=== PATIENT | female | born 1970 | race African-American/Black ===

== ENCOUNTER 2021-01-06 19:01 | Emergency (ER) | payer BC, MEDICAID, SELFPAY ==
[~2021-01-06] VITALS: Ht 157.5 cm; Wt 64.8 kg
--- NOTE | 2021-01-06 19:18 | NUR ---
NIL by RAD x1
[2021-01-06 20:29] LABS: BASOPHILS % (AUTO) 1 % (0-1); EOSINOPHILS % (AUTO) 1 % (1-7); LYMPHOCYTES % (AUTO) 29 % (22-44); MEAN CORPUSCULAR HEMOGLOBIN 27.4 pg (27.0-34.8); MEAN CORPUSCULAR HGB CONC 33.4 g/dL (32.4-35.8); MEAN PLATELET VOLUME 8.5 fL (7.4-10.4); MONOCYTES % (AUTO) 5 % (2-9); NEUTROPHILS % (AUTO) 65 % (42-75); PLATELET COUNT 245 x10^3/uL (130-400); RED BLOOD COUNT 4.65 x10^6/uL (3.82-5.3); RED CELL DISTRIBUTION WIDTH 15.2 % (9.6-15.2)
--- NOTE | 2021-01-06 20:37 | NUR ---
exerciser horse: patient to room from lobby.
[2021-01-06 20:39] LABS: ALBUMIN 3.9 g/dL (3.4-5.0); ANION GAP 4 mmol/L (5-15); CALCIUM 9.3 mg/dL (8.5-10.1); CHLORIDE 109 mmol/L (98-107); CREATININE 1.07 mg/dL (0.55-1.02)
--- NOTE | 2021-01-06 20:44 | NUR ---
FIRST CONTACT WITH PATIENT: PT REPORTS COMING INTO ED TODAY DUE TO SOB,COUGH, LIGHT HEADEDNESS AND A SYNCOPAL EPISODE TODAY, DENIES HITTING HEAD, STATES SHE FELL INTO A CHAIR. PT NOW RESTING ON GURNEY, WITH A FREQUENT, NON PRODUCTIVE COUGH. PT APPEARS ANXIOUS REGARDING SYMPTOMS. PLACED ON MONITORING AT THIS TIME. SO AT BS, BED IN LOWEST, RAILS ENGAGED, CALL LIGHT ON LAP, WCTM. PROVIDED WARM BLANKETS FOR COMFORT.
--- NOTE | 2021-01-06 20:55 | NUR ---
ua sent to lab at this time, pt ambulated to and from restroom with a smooth and steady gait. back to [facility] at this time. no change in paty hardy erp at bs for eval and poc. wctm.
[2021-01-06 21:04] LABS: MICROSCOPIC AUTO
[2021-01-06 22:27] VITALS: BP 122/77
--- NOTE | 2021-01-06 22:28 | NUR ---
Patient given discharge instructions and they have confirmed that they understand the instructions. Patient ambulatory with steady gait. NAD, all questions answered appropriately, denies additional needs at this time. No personal belongings left in room after discharge.
== END 2021-01-06 22:29 | disposition home or self-care (01) ==
LOC: ED 22:23
DX: R55 Syncope and collapse (principal); R05 Cough; J45.909 Unspecified asthma, uncomplicated
CPT/HCPCS: 36415; 71045; 80048; 81001; 82040; 84703; 85025; 87086; 93005; 99285

== ENCOUNTER 2021-01-15 09:00 | Emergency (ER) | payer MEDICAID ==
[~2021-01-15] VITALS: Ht 157.5 cm; Wt 62.3 kg
[2021-01-15 10:09] LABS: BASOPHILS % (AUTO) 1 % (0-1); EOSINOPHILS % (AUTO) 0 % (1-7); LYMPHOCYTES % (AUTO) 50 % (22-44); MEAN CORPUSCULAR HEMOGLOBIN 27.1 pg (27.0-34.8); MEAN CORPUSCULAR HGB CONC 33.4 g/dL (32.4-35.8); MEAN PLATELET VOLUME 8.9 fL (7.4-10.4); MONOCYTES % (AUTO) 15 % (2-9); NEUTROPHILS % (AUTO) 34 % (42-75); PLATELET COUNT 153 x10^3/uL (130-400); RED BLOOD COUNT 4.91 x10^6/uL (3.82-5.3); RED CELL DISTRIBUTION WIDTH 14.9 % (9.6-15.2)
[2021-01-15 10:20] LABS: ALANINE AMINOTRANSFERASE 19 U/L (12-78); ALBUMIN 3.6 g/dL (3.4-5.0); ANION GAP 11 mmol/L (5-15); CHLORIDE 105 mmol/L (98-107)
[2021-01-15 10:25] LABS: ALKALINE PHOSPHATASE 66 U/L (45-117); BILIRUBIN,TOTAL 0.4 mg/dL (0.2-1.0); CREATININE 0.75 mg/dL (0.55-1.02); TOTAL PROTEIN 8.2 g/dL (6.4-8.2)
--- NOTE | 2021-01-15 12:11 | NUR ---
PT TO RM FROM LOBBY AT THIS TIME
--- NOTE | 2021-01-15 12:47 | NUR ---
PT OOB AMBULATED TO BATHROOM TO COLLECT URINE SAMPLE
[2021-01-15] MEDS ORDERED: KETOROLAC 15 MG/1ML IM ONE (13:00)
[2021-01-15 13:13] VITALS: BP 124/76
[2021-01-15] MEDS ORDERED: KETOROLAC 30 MG/1 ML ONE (13:14)
--- NOTE | 2021-01-15 13:18 | NUR ---
BREAK RN: PT MED NOTED, VSS. URINE SENT TO LAB. CALL LIGHT W/I REACH.
[2021-01-15 13:57] LABS: MICROSCOPIC NOT IND
== END 2021-01-15 14:56 | disposition home or self-care (01) ==
LOC: ED 12:11
DX: U07.1 COVID-19 (principal); B34.9 Viral infection, unspecified; F17.210 Nicotine dependence, cigarettes, uncomplicated
CPT/HCPCS: 36415; 71045; 80053; 81003; 83690; 84703; 85025; 96372; 99284; J1885; U0003; U0005